=== PATIENT | female | born 1995 | race Two or more races ===

== ENCOUNTER 2018-11-19 15:43 | Emergency (ER) | payer SELFPAY ==
[~2018-11-19] VITALS: Ht 160 cm; Wt 52.2 kg
[2018-11-19 18:59] VITALS: BP 131/73
[2018-11-19] MEDS ORDERED: HYDROcodone-ACET 5/325MG TAB PO ONE (19:45)
[2018-11-19] MEDS ORDERED: BACLOFEN 10 MG TAB PO ONE (19:45)
== END 2018-11-19 20:55 | disposition home or self-care (01) ==
LOC: ER 15:43
DX: S20.219A Contusion of unspecified front wall of thorax, initial encounter (principal); S00.81XA Abrasion of other part of head, initial encounter; S40.819A Abrasion of unspecified upper arm, initial encounter; S00.12XA Contusion of left eyelid and periocular area, initial encounter; Y08.89XA Assault by other specified means, initial encounter; Y93.89 Activity, other specified; Y99.8 Other external cause status; Y92.89 Other specified places as the place of occurrence of the external cause
CPT/HCPCS: 71101; 81025